=== PATIENT | female | born 1980 | race Caucasian/White ===

== ENCOUNTER 2020-08-05 06:23 | Inpatient (IN) | payer MEDICAID ==
[~2020-08-05] VITALS: Ht 157.5 cm; Wt 65.8 kg
[2020-08-05] MEDS ORDERED: MORPHINE SULFATE 4 MG/ML CPJ (NOT FOR IM USE) IV STA ×2 (06:35→09:31)
[2020-08-05] MEDS ORDERED: ONDANSETRON HCL 4MG/2ML INJ IV STA ×2 (06:35→09:31)
[2020-08-05] MEDS ORDERED: SODIUM CHLORIDE 0.9% 1,000 ML IV ONE ×2 (06:45→09:45)
[2020-08-05 08:22] LABS: BASOPHILS % 0.3 % (0.0-2.0); EOSINOPHILS % 1.8 % (0.0-5.0); HEMATOCRIT. 41.8 % (36.0-48.0); HEMOGLOBIN. 13.6 g/dL (12.0-16.0); LYMPHOCYTES % 33.4 % (20.0-50.0); MEAN CORPUSCULAR HEMOGLOBIN 26.4 pg (28.0-32.0); MEAN CORPUSCULAR VOLUME 81.3 fL (81.0-99.0); MEAN PLATELET VOLUME 8.6 fl (7.4-10.4); MONOCYTES % 5.9 % (2.0-8.0); NEUTROPHILS % 58.6 % (40.0-76.0); PLATELET 209 x1000/uL (130-400); RED BLOOD CELL COUNT 5.14 mill/uL (4.2-5.4)
[2020-08-05 08:30] LABS: CHLORIDE 107 mEq/L (98-107)
[2020-08-05 08:33] LABS: INR 0.9; PROTHROMBIN TIME 10.1 sec (9.6-11.0)
[2020-08-05 08:41] LABS: HCG SCREEN NEGATIVE
[2020-08-05 12:00] VITALS: BP 130/81
[2020-08-05 12:07] LABS: CLARITY URINE CLEAR (CLEAR); COLOR URINE YELLOW (YELLOW); KETONES URINE NEGATIVE (NEGATIVE); LEUKOCYTE ESTERASE URINE NEGATIVE (NEGATIVE); NITRITE URINE NEGATIVE (NEGATIVE); OCCULT BLOOD URINE NEGATIVE (NEGATIVE); PH URINE 5.5 (4.5-8.0); PROTEIN URINE NEGATIVE (NEGATIVE); SPECIFIC GRAVITY URINE 1.011 (1.005-1.030); UROBILINOGEN URINE 0.2 E.U./dL (0.2-1.0)
[2020-08-05] MEDS ORDERED: MORPHINE SULFATE 2 MG/ML CPJ (NOT FOR IM USE) IV PRN (12:30)
[2020-08-05] MEDS ORDERED: CLONIDINE 0.1MG TABLET PO PRN (12:30)
[2020-08-05] MEDS ORDERED: IPRATROPIUM/ALBUTEROL 0.5-3(2.5)MG/3ML NEB HHN PRN (12:30)
[2020-08-05] MEDS ORDERED: ONDANSETRON HCL 4MG/2ML INJ IV PRN (12:30)
[2020-08-05] MEDS ORDERED: DOCUSATE SODIUM 100MG CAPSULE PO PRN (12:30)
[2020-08-05] MEDS ORDERED: ACETAMINOPHEN 325MG TABLET PO PRN ×2 (12:30)
[2020-08-05] MEDS ORDERED: LORAZEPAM 0.5MG TABLET PO PRN (12:30)
[2020-08-05] MEDS: HYDROCODONE/ACETAMINOPHEN 5/325MG TABLET PO PRN (14:18)
[2020-08-05] MEDS ORDERED: ASPI-1497 PO (14:51)
[2020-08-05] MEDS ORDERED: glimepiride (14:51)
[2020-08-05] MEDS ORDERED: ATORVASTATIN (14:52)
[2020-08-05] MEDS ORDERED: METF-416 MT (14:52)
[2020-08-05] MEDS ORDERED: LISI-186 MT (14:53)
[2020-08-05] MEDS ORDERED: JANUVIA (14:54)
[2020-08-05 16:00] VITALS: BP 106/77
[2020-08-05] MEDS ORDERED: NON FORMULARY PATIENT HOME MED XX SCH (16:30)
[2020-08-05] MEDS: METFORMIN HCL 500MG TABLET PO SCH (17:46)
[2020-08-05 20:00] VITALS: BP 100/61
[2020-08-06] VITALS: BP 97/58
[2020-08-06 04:00] VITALS: BP 110/73
[2020-08-06] MEDS: HYDROCODONE/ACETAMINOPHEN 5/325MG TABLET PO PRN (04:26)
[2020-08-06] MEDS ORDERED: GLIMEPIRIDE 1MG TABLET PO SCH (07:20)
[2020-08-06 08:00] VITALS: BP 108/64
[2020-08-06] MEDS ORDERED: LINAGLIPTIN 5MG TABLET PO SCH (09:00)
[2020-08-06] MEDS ORDERED: ASPIRIN 81MG EC TABLET PO SCH (09:00)
[2020-08-06] MEDS ORDERED: LISINOPRIL 5MG TABLET PO SCH (09:00)
[2020-08-06] MEDS: METFORMIN HCL 500MG TABLET PO SCH ×2 (09:41→18:00)
[2020-08-06] MEDS ORDERED: HYDR-4001 PO ×2 (11:25)
[2020-08-06 12:00] VITALS: BP_SYST 107; BP_SYST 108; BP_DIAS 64; BP_DIAS 69
[2020-08-06] MEDS ORDERED: HYDR-4001 MT (15:49)
[2020-08-06 16:00] VITALS: BP 111/72
== END 2020-08-06 18:15 | disposition home or self-care (01) | DRG 351 ==
LOC: ER 06:23 → 6EST 09:44 → EDBEDREQ 09:47 → EDBEDREQTM 09:47 → ENRESERV 10:34
PROVIDERS: ADMIT Internal Medicine; ATTEND Internal Medicine
DX: M25.551 Pain in right hip (principal); K76.0 Fatty (change of) liver, not elsewhere classified; E87.1 Hypo-osmolality and hyponatremia; K86.89 Other specified diseases of pancreas; R16.0 Hepatomegaly, not elsewhere classified; E11.65 Type 2 diabetes mellitus with hyperglycemia; M54.5 Low back pain; E78.5 Hyperlipidemia, unspecified; I10 Essential (primary) hypertension; R74.01 Elevation of levels of liver transaminase levels; N32.89 Other specified disorders of bladder; R33.9 Retention of urine, unspecified; Z88.0 Allergy status to penicillin; Z90.49 Acquired absence of other specified parts of digestive tract; Z82.49 Family history of ischemic heart disease and other diseases of the circulatory system; W01.0XXA Fall on same level from slipping, tripping and stumbling without subsequent striking against object, initial encounter; Y93.89 Activity, other specified; Y92.89 Other specified places as the place of occurrence of the external cause; Y99.8 Other external cause status
CPT/HCPCS: 36415; 71045; 72100; 72192; 73502; 76700; 80053; 80076; 81003; 83036; 84703; 85025; 93005; 93970; 97162; 99285; J2270; J2405; J7030